=== PATIENT | male | born 1990 | race African-American/Black ===

== ENCOUNTER 2021-10-07 16:01 | Emergency (ER) ==
[2021-10-08] MEDS ORDERED: NAPROSYN500 MG PO (00:27)
[2021-10-08] MEDS ORDERED: PERCOCET 325 MG1 TA2 PO (00:27)
== END 2021-10-07 16:30 | disposition left against medical advice (07) ==
LOC: COL.ER 16:01 → EDBD 16:10 → COL.ER 16:10
DX: R69 Illness, unspecified (principal)

== ENCOUNTER 2021-10-07 21:53 | Emergency (ER) | payer SELFPAY ==
[~2021-10-07] VITALS: Ht 180.3 cm; Wt 86.4 kg
[2021-10-07 21:57] VITALS: TEMP 97.5
[2021-10-07 22:42] LABS: COLLECTION METHOD CLEAN CATCH
[2021-10-07 22:47] LABS: PH 7 (5-8); SQUAMOUS EPITHELIAL 0-2 /hpf (0-10); URINE APPEARANCE Clear (CLEAR/HAZY); URINE BACTERIA None Seen /hpf (NONE SEEN); URINE BILIRUBIN Negative (NEGATIVE); URINE BLOOD Negative (NEGATIVE); URINE COLOR Straw (YELLOW); URINE GLUCOSE Negative (NEGATIVE); URINE KETONE Negative (NEGATIVE); URINE LEUKOCYTE ESTERASE Negative (NEGATIVE); URINE NITRATE Negative (NEGATIVE); URINE PROTEIN(semi-quant) Negative (NEGATIVE); URINE RBC 0-2 /hpf (0-2); URINE UROBILINOGEN Negative (NEGATIVE)
[2021-10-07 22:57] LABS: BASO % 0.4 % (0.0-2.0); EOS # 0.3 K/mm3 (0.0-0.7); EOS % 5.7 % (0.0-4.0); GRAN # 2.5 K/mm3 (1.4-6.5); GRAN % 45.3 % (42.2-75.2); HEMATOCRIT 40.8 % (42.0-52.0); HEMOGLOBIN 14.3 g/dl (13.5-18.0); LYMPH # 2.2 K/mm3 (1.2-3.4); LYMPH % 39.4 % (20.0-51.0); MEAN CELL VOLUME 92 fl (80.0-100.0); MEAN CORPUSCULAR HEMOGLOBIN 32 pg (27-31); MEAN CORPUSCULAR HGB CONC 35 g/dl (33.0-37.0); MEAN PLATELET VOLUME 10.6 fl (7.4-10.4); MONO # 0.5 K/mm3 (0.1-0.6); PLATELET COUNT 232 K/mm3 (130-400); RED BLOOD COUNT 4.45 M/mm3 (4.20-5.60); REDCELL DISTRIBUTION WIDTH-CV 12.9 % (11.5-14.5)
[2021-10-07 23:06] LABS: ALBUMIN 4.1 gm/dL (3.5-5.0); BILIRUBIN,TOTAL 0.6 mg/dL (0.2-1.2); CALCIUM 9.2 mg/dL (8.4-10.2); CREATININE, serum 1.01 mg/dL (0.72-1.25); POTASSIUM 4.1 mmol/L (3.5-4.5); TOTAL PROTEIN 7.6 gm/dL (6.2-8.1)
[2021-10-08] MEDS ORDERED: NAPROSYN500 MG PO (00:27)
[2021-10-08] MEDS ORDERED: PERCOCET 325 MG1 TA2 PO (00:27)
[2021-10-08 00:57] VITALS: BP 152/95; PULSE 62
== END 2021-10-08 00:57 | disposition home or self-care (01) ==
LOC: COL.ER 21:53
PROVIDERS: Emergency Medicine
DX: N20.0 Calculus of kidney (principal); Z28.311 Partially vaccinated for COVID-19
CPT/HCPCS: J1885; Q9967

== ENCOUNTER 2021-11-27 17:32 | Emergency (ER) | payer SELFPAY ==
[~2021-11-27] VITALS: Ht 182.9 cm; Wt 85.9 kg
[~2021-11-27 17:32] MED LIST: NAPROSYN500 MG PO; PERCOCET 325 MG1 TA2 PO
[2021-11-27 18:10] VITALS: TEMP 97.9
[2021-11-27] MEDS ORDERED: AMOXICILLIN 8751 TAB PO (18:50)
[2021-11-27 19:05] VITALS: BP 120/79; PULSE 71
== END 2021-11-27 19:05 | disposition home or self-care (01) ==
LOC: COL.ER 17:32
DX: L03.031 Cellulitis of right toe (principal)

== ENCOUNTER 2023-09-14 20:56 | Emergency (ER) | payer SELFPAY ==
[~2023-09-14] VITALS: Ht 180.3 cm; Wt 88.6 kg
[~2023-09-14 20:56] MED LIST changes: +AMOXICILLIN 8751 TAB PO
[2023-09-14 21:00] VITALS: TEMP 98.1
[2023-09-14 21:27] LABS: COLLECTION METHOD RANDOM VOIDED
[2023-09-14 21:36] LABS: BASO % 0.5 % (0.0-2.0); EOS # 0.3 K/mm3 (0.0-0.7); EOS % 4.5 % (0.0-4.0); GRAN # 2.2 K/mm3 (1.4-6.5); GRAN % 38.5 % (42.2-75.2); HEMATOCRIT 43.7 % (42.0-52.0); HEMOGLOBIN 15.2 g/dl (13.5-18.0); LYMPH # 2.9 K/mm3 (1.2-3.4); LYMPH % 50.4 % (20.0-51.0); MEAN CELL VOLUME 93 fl (80.0-100.0); MEAN CORPUSCULAR HEMOGLOBIN 33 pg (27-31); MEAN CORPUSCULAR HGB CONC 35 g/dl (33.0-37.0); MEAN PLATELET VOLUME 10.7 fl (7.4-10.4); MONO # 0.3 K/mm3 (0.1-0.6); MONO % 5.9 % (1.7-9.3); PLATELET COUNT 250 K/mm3 (130-400); RED BLOOD COUNT 4.68 M/mm3 (4.20-5.60); REDCELL DISTRIBUTION WIDTH-CV 12.6 % (11.5-14.5)
[2023-09-14 21:37] LABS: URINE APPEARANCE CLEAR (CLEAR/HAZY); URINE BLOOD NEGATIVE (NEGATIVE); URINE COLOR YELLOW (YELLOW); URINE GLUCOSE NEGATIVE (NEGATIVE); URINE KETONE NEGATIVE (NEGATIVE); URINE NITRATE NEGATIVE (NEGATIVE); URINE PROTEIN(semi-quant) NEGATIVE (NEGATIVE)
[2023-09-14 22:02] LABS: ALBUMIN 4.3 g/dL (3.5-5.0); BILIRUBIN,TOTAL 0.4 mg/dL (0.2-1.2); CALCIUM 9.9 mg/dL (8.4-10.2); CREATININE, serum 1.21 mg/dL (0.72-1.25); POTASSIUM 3.7 mEq/L (3.5-4.5); TOTAL PROTEIN 8.2 g/dl (6.2-8.1)
[2023-09-14] MEDS ORDERED: Iohexol 300 - 100 ML VIAL IV ONE (22:22)
[2023-09-14] MEDS ORDERED: NS 50 ML IV ONE (22:23)
[2023-09-14] MEDS ORDERED: Amoxicillin/Clavulanate K+ 875/125 MG TAB PO ONE (23:45)
[2023-09-14] MEDS ORDERED: AMOXICILLIN 8751 TAB PO (23:47)
[2023-09-14 23:55] VITALS: BP 129/71; PULSE 78
== END 2023-09-14 23:57 | disposition home or self-care (01) ==
LOC: COL.ER 20:56
PROVIDERS: Emergency Medicine
DX: K52.9 Noninfective gastroenteritis and colitis, unspecified (principal)
CPT/HCPCS: Q9967